=== PATIENT | female | born 2000 | race Caucasian/White ===

== ENCOUNTER 2021-08-31 17:14 | Observation (INO) | payer BC ==
[~2021-08-31] VITALS: Ht 165.1 cm; Wt 59.1 kg
[2021-08-31 00:31] VITALS: BP 110/70; PULSE 85; TEMP 97.6
[~2021-08-31 17:14] MED LIST: ALBUTEROL SULFAT3 M3; ALBUTEROL0.83 MG/ML IH; AZITHROMYC100 MG/5 M PO; AZITHROMYC200 MG/5 M; PREDNISONE10 MG PO; PREDNISONE20 MG PO; PULMICORT0.5 MG/2 M IH; RT ADVAIR 128 DISKUS IH; VENTOLIN0.09 MG IH
[2021-08-31 17:55] LABS: BASO # 0.1 K/mm3 (0.0-0.2); BASO % 0.3 % (0.0-2.0); GRAN # 16.9 K/mm3 (1.4-6.5); GRAN % 87.9 % (42.2-75.2); HEMATOCRIT 42.6 % (35.0-45.0); HEMOGLOBIN 14.5 g/dl (12.0-15.0); LYMPH # 0.7 K/mm3 (1.2-3.4); LYMPH % 3.9 % (20.0-51.0); MEAN CELL VOLUME 88 fl (80.0-95.0); MEAN CORPUSCULAR HEMOGLOBIN 30 pg (26-32); MEAN CORPUSCULAR HGB CONC 34 g/dl (33.0-37.0); MEAN PLATELET VOLUME 10.9 fl (7.4-10.4); MONO # 1.4 K/mm3 (0.1-0.6); MONO % 7.4 % (1.7-9.3); PLATELET COUNT 256 K/mm3 (130-400); RED BLOOD COUNT 4.86 M/mm3 (4.10-5.30); REDCELL DISTRIBUTION WIDTH-CV 12.2 % (11.5-14.5)
[2021-08-31 18:12] LABS: ALBUMIN 4.5 gm/dL (3.5-5.0); BILIRUBIN,TOTAL 0.5 mg/dL (0.2-1.2); CALCIUM 10.2 mg/dL (8.4-10.2); CREATININE, serum 0.79 mg/dL (0.57-1.11); POTASSIUM 4.1 mmol/L (3.5-4.5); TOTAL PROTEIN 8.3 gm/dL (6.2-8.1)
[2021-08-31 18:21] LABS: COLLECTION METHOD CLEAN CATCH
[2021-08-31 18:32] LABS: MUCOUS Present (NOT PRESENT); PH 7 (5-8); SQUAMOUS EPITHELIAL 0-2 /hpf (0-10); URINE APPEARANCE Hazy (CLEAR/HAZY); URINE BACTERIA None Seen /hpf (NONE SEEN); URINE BILIRUBIN Negative (NEGATIVE); URINE BLOOD 1+ (NEGATIVE); URINE COLOR Yellow (YELLOW); URINE GLUCOSE Negative (NEGATIVE); URINE KETONE 2+ (NEGATIVE); URINE LEUKOCYTE ESTERASE Negative (NEGATIVE); URINE NITRATE Negative (NEGATIVE); URINE PROTEIN(semi-quant) Negative (NEGATIVE); URINE UROBILINOGEN Negative (NEGATIVE)
[2021-08-31 22:50] VITALS: BP 110/70; PULSE 85; TEMP 97.6
[2021-08-31 23:05] VITALS: BP 115/73; PULSE 89
[2021-08-31 23:20] VITALS: BP 108/60; PULSE 80
[2021-08-31 23:35] VITALS: BP 109/59; PULSE 77
[2021-09-01 00:05] VITALS: BP 103/54; PULSE 78
--- NOTE | 2021-09-01 00:34 | NUR ---
Report received from TRAVIS Mckay. Patient to the floor from PACU at approximately 2245. Patient underwent a laproscopic appendectomy procedure. Patient is A&Ox3 and pleasant. Patient has 3 lap sites, sealed with skin glue. Patient is tolerating oral fluids well and has minimal complaints of pain, rates abd pain at 2/10 and "dull". Full body assessment completed and post-op vitals are WNL. Patient has no other complaints at this time. Call light within reach.
[2021-09-01 00:35] VITALS: BP 112/53; PULSE 68; TEMP 97.8
[2021-09-01 01:00] VITALS: BP 110/60; PULSE 82
[2021-09-01 01:35] VITALS: BP 102/56; PULSE 75
--- NOTE | 2021-09-01 02:26 | NUR ---
Patient requested to use the restroom. Patient ambulated to the bathroom without difficulty as well as voided urine without difficulty. Patient Patient also requested oral fluids and clear foods. This nurse gave the patient jell-o and apple juice; the patient tolerated oral foods well. Patient states that she has pain near her lap sites, expresses that the pain is 3/10. No other complaints at this time. Call light within reach.
[2021-09-01 02:31] VITALS: BP 112/53; PULSE 68
--- NOTE | 2021-09-01 05:14 | NUR ---
Patient complains of abd pain. Ice pack was applied to her left side and PRN Tylenol was given. Patient has no other complaints at this time. Call light within reach.
--- NOTE | 2021-09-01 06:40 | NUR ---
Pt doing okay this morning. States that her pain is not too bad but that her throat is bothering her. Gave her some hot tea. Pt denies any other needs. Pt did have IS on her care plan. There are not any in house to give her. Encouraged her to take deep breaths a few times an hour
[2021-09-01] MEDS ORDERED: NORCO 325 MG-51 TAB PO (07:31)
[2021-09-01 07:39] VITALS: BP 94/48; PULSE 68; TEMP 98.1
--- NOTE | 2021-09-01 10:10 | NUR ---
Pt mother present in the room at this time. PT states that her pain is not too bad and she is able to get up and move around independently. Pt deneis the need for any pain medication, offered motrin and she denied the need. Reviewed discharge instructions with pt and mother to include prescription and follow up appointment. All questions answered. INT removed from right AC. Mother did not want to ledesma out of her and wants daughter to be able to take a nap and get some rest before leaving. Educated to ring call light when she was ready to go or if she had any other needs.
--- NOTE | 2021-09-01 12:02 | NUR ---
First visit from the java groovy developer. prayed with patient. No other needs right now.
--- NOTE | 2021-09-01 12:02 | NUR ---
Pt continues to do well, denies the need for any pain medication. Pt does have someone visiting and stated she would then be ready to go. Informed her to notify robbie when she was ready and we would escort her out
--- NOTE | 2021-09-01 12:27 | NUR ---
Pt escorted out at this time
== END 2021-09-01 12:28 | disposition home or self-care (01) ==
LOC: COL.ER 17:14 → SURG 20:25
PROVIDERS: Physician Assistant; ADMIT Surgery
DX: K35.80 Unspecified acute appendicitis (principal)
CPT/HCPCS: G0378; J1100; J1885; J2405; J2543; J2704; J2710; J3010; J7030; Q9967